=== PATIENT | male | born 1955 | race Caucasian/White ===

== ENCOUNTER 2018-05-08 09:20 | Outpatient (CLI) | payer MEDICAID, SELFPAY ==
[2018-05-08 12:17] LABS: Glucose 113 mg/dL (70-100)
== END 2018-05-08 09:40 ==
PROVIDERS: PCP Family Medicine; Visit Provider Family Medicine
DX: E74.39 Other disorders of intestinal carbohydrate absorption (principal)
CPT/HCPCS: 36415; 82947

== ENCOUNTER 2018-06-03 15:24 | Emergency (ER) | payer OTHER, MEDICAID, SELFPAY ==
[2018-06-03 15:31] VITALS: BP 183/84; PULSE 78; RESP 16; TEMP 37.4; O2SAT 96
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
--- NOTE | 2018-06-03 17:12 | DI.VRAD_ITS ---
EXAM: CT Head Without Contrast EXAM DATE/TIME: 06/03/2018 4:05 PM CLINICAL HISTORY: 62 years old, male; Pain and signs and symptoms; Neck pain TECHNIQUE: Axial computed tomography images of the head/brain without contrast. All CT scans at this facility use at least one of these dose optimization techniques: automated exposure control; mA and/or kV adjustment per patient size (includes targeted exams where dose is matched to clinical indication); or iterative reconstruction. Coronal and sagittal reformatted images were created and reviewed. COMPARISON: No relevant prior studies available. FINDINGS: Brain: There is cavitary encephalomalacia involving the anterior inferior right frontal lobe. Minimal tissue loss is also seen within the inferior medial left frontal lobe. There is tissue loss also seen in the anterior and lateral left temporal lobe. Findings likely represent posttraumatic change. The ventricles and sulci are otherwise unremarkable. There is no acute hemorrhage, mass or shift. There is no evidence of an acute cortical or major vascular territory infarct. No abnormal extra-axial collections are identified. Ventricles: There is no significant ventricular enlargement/hydrocephalus. Bones/joints: There is no acute fracture. Sinuses: There is sinus mucoperiosteal disease involving the right maxillary antrum. There is no other significant sinus opacification or fluid level. Mastoid air cells: No significant mastoid opacification. Soft tissues: There is right prefrontal soft tissue swelling/edema. Subcutaneous soft tissues are otherwise unremarkable. Vasculature: Intracranial vascular calcification is noted. IMPRESSION: 1. Right prefrontal soft tissue swelling. No acute fracture. 2. Encephalomalacia involving the frontal lobes right greater than left and the left temporal lobe presumably posttraumatic. No acute intracranial findings identified. EXAM: CT Cervical Spine Without Contrast EXAM DATE/TIME: 06/03/2018 4:05 PM CLINICAL HISTORY: 62 years old, male; Pain and signs and symptoms; Neck pain TECHNIQUE: Axial computed tomography images of the cervical spine without intravenous contrast. All CT scans at this facility use at least one of these dose optimization techniques: automated exposure control; mA and/or kV adjustment per patient size (includes targeted exams where dose is matched to clinical indication); or iterative reconstruction. Coronal and sagittal reformatted images were created and reviewed. COMPARISON: No relevant prior studies available. FINDINGS: Vertebrae: There is straightening of the cervical lordosis which may be positional or due to spasm. There is no evidence of an acute fracture. There is no decrease of vertebral body height. There is no acute or destructive bony abnormality. Discs/Spinal canal/Neural foramina: There is multilevel disc space narrowing in the cervical spine most prominent C3-4 through C6-7. There are disc osteophyte complexes, spondylitic changes of the endplates, uncovertebral and facet arthropathy. There is mild narrowing of the canal at the level of the disc spaces without high-grade central spinal stenosis. Degenerative changes also lead to multilevel foraminal narrowing. Soft tissues: There is no evidence of a discrete soft tissue mass in the neck. Lungs: No significant abnormality is identified at the lung apices. Vasculature: Vascular calcification is seen at the carotid bifurcations. No IMPRESSION: No acute fracture. Cervical spondylosis. Disc disease. Dictated and Authenticated by: Ele Alcantara MD. Ordering:STEPHENIE Segura MD
[2018-06-03 17:31] VITALS: BP 164/84; PULSE 80; RESP 16; TEMP 37.4; O2SAT 96
== END 2018-06-03 17:34 | disposition home or self-care (01) ==
PROVIDERS: Emergency Provider Emergency Medicine; PCP Family Medicine
DX: S16.1XXA Strain of muscle, fascia and tendon at neck level, initial encounter (principal); F07.81 Postconcussional syndrome; V43.52XA Car driver injured in collision with other type car in traffic accident, initial encounter; I10 Essential (primary) hypertension
CPT/HCPCS: 99284; 70450; 72125; L0172

== ENCOUNTER 2018-11-02 09:44 | Outpatient (CLI) | payer MEDICAID, SELFPAY ==
--- NOTE | 2018-11-02 10:13 | DI.RAD_ITS ---
SYMPTOM/DIAGNOSIS: BILAT KNEE PAIN, PREOP ALIGNMENT LEG LENGTH EXAMINATION AND BILATERAL KNEE XRAYS: Right knee: There is periarticular spurring involving all three joint compartments. The bones are intact and normally mineralized. There is a small suprapatellar joint effusion. Vascular calcifications are seen in the soft tissues. IMPRESSION: Mild to moderate osteoarthritis of the right knee. Left knee: There is marked narrowing of the medial femoral tibial joint space and mild medial subluxation of the distal femur relative to the proximal tibia. There is subchondral sclerosis in the medial femoral tibial joint space. Periarticular spurring is seen involving all three joint compartments. The bones appear intact and normally mineralized. Vascular calcifications are seen. There is a small suprapatellar joint effusion. IMPRESSION: Moderately severe osteoarthritis of the left knee. Leg length: The right lower extremity measures 86.3 cm. The left lower extremity measures 85.4 cm. There is osteoarthritis in the knees bilaterally. Vascular calcifications are present in the soft tissues.
== END 2018-11-02 10:04 ==
PROVIDERS: PCP Family Medicine; Visit Provider Student in an Organized Health Care Education/Training Program
DX: M25.561 Pain in right knee (principal); M25.562 Pain in left knee; M17.0 Bilateral primary osteoarthritis of knee; M79.89 Other specified soft tissue disorders
CPT/HCPCS: 73562; 77073

== ENCOUNTER 2019-02-09 09:00 | Outpatient (CLI) | payer MEDICAID, SELFPAY ==
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
[2019-02-09 11:01] LABS: HCT 48.6 % (40.0-50.0); HGB 16.4 g/dL (13.5-17.5); Mean Corp. HGB Concentration 33.7 g/dL (32.0-36.0); Mean Corpuscular Volume 88.8 fL (80-95); Mean Platelet Volume 9.3 fL (8.0-11.0); Platelet Count 300 x1000/uL (130-400); RBC 5.47 m/cumm (4.50-6.00); RBC Distribution Width 13.7 % (11.8-14.1); White Blood Cell Count 5.45 k/cumm (4.4-10.8)
[2019-02-09 11:03] LABS: Anion Gap 7.8 mmol/L (3-11); BUN 20 mg/dL (7-18); CO2 29.2 mmol/L (21.0-32.0); CREATININE 0.92 mg/dL (0.70-1.30); Calcium 10.2 mg/dL (8.5-10.1); Chloride 103 mmol/L (98-107); Glucose 125 mg/dL (70-100); Potassium 4.8 mmol/L (3.5-5.1); Sodium 140 mmol/L (136-145)
== END 2019-02-09 09:20 ==
PROVIDERS: PCP Family Medicine; Visit Provider Student in an Organized Health Care Education/Training Program
DX: M25.562 Pain in left knee (principal); M17.12 Unilateral primary osteoarthritis, left knee; I10 Essential (primary) hypertension; Z01.818 Encounter for other preprocedural examination; Z01.812 Encounter for preprocedural laboratory examination
CPT/HCPCS: 36415; 80048; 85027; NC

== ENCOUNTER 2019-02-16 06:33 | Observation (INO) | payer MEDICAID, SELFPAY ==
[2019-02-16] VITALS (13 sets, daily range): BP systolic 101–139; BP diastolic 42–83; PULSE 53–88; RESP 13–20; TEMP 35.5–37.2; O2SAT 93–100
[2019-02-16] MEDS: Lactated Ringers 1,000 ML 80 ML IV ×2 (07:25→11:13)
[2019-02-16] MEDS: Gabapentin 300 MG CAP PO (07:26)
[2019-02-16] MEDS: Celecoxib 200 MG CAP 400 MG PO (07:26)
[2019-02-16] MEDS: Acetaminophen 500 MG TAB 1000 MG PO ×2 (07:27→14:40)
[2019-02-16] MEDS: Bupivacaine 0.25% Pres-Free 10 ML VIAL (07:47)
[2019-02-16] MEDS: ceFAZolin 2 GM/50 ML BAG IVPB (08:10)
[2019-02-16] MEDS: Ketorolac 30 MG/ML VIAL (09:05)
[2019-02-16] MEDS: Normal Saline 50 ML (09:05)
[2019-02-16] MEDS: Bupivacaine 0.25% Pres-Free 30 ML VIAL (09:05)
--- NOTE | 2019-02-16 13:35 | W.PM.OP ---
Date of service: 02/16/19 Time of Service: 10:15 Operative Note Operative Note DATE OF PROCEDURE: 02/16/19 PRE-OP DIAGNOSIS: Left Knee Post-Traumatic Osteoarthritis POST-OP DIAGNOSIS: same PROCEDURE: Left Total Knee Replacement SURGEON: Franky James MANAGER CONFIGURATION: Maria Victoria Cedillo ANESTHESIA: regional and spinal ESTIMATED BLOOD LOSS: 150 PATHOLOGY: none sent TOURNIQUET TIME: 29 COMPLICATIONS: None Patient was transported to: PACU Patient's condition: stable Implants: 1. Depuy Attune Posterior Stabilized Femoral Component, Size 5 2. Depuy Attune Fixed Platform Tibial Component, Size 5 3. Depuy Attune 5x8mm Fixed, Stabilized Poly 4. Depuy Attune Patellar Component, Size 38mm Indications: I have seen Dandre in clinic for symptoms of left knee arthritis, confirmed with radiographic findings. Dandre has exhausted nonoperative methods and was having significant limitations in daily function and desired better function and less pain. I discussed the technical details of a knee replacement. I explained the risks of the procedure to include, but not limited to, bleeding, infection, pain, stiffness, fracture, damage to nerves and vessels, damage to muscles and tendons, loosening, need for repeat procedure, blood clot and cardiopulmonary demise. Despite these risks, Dandre elected to proceed. Findings: There was significant signs of arthritis throughout the knee. Procedure Description: Dandre was greeted in the preoperative holding area where the correct side was identified and marked. The consent was reviewed with the patient and signed. The history and physical was updated. All questions were answered. Preoperative mediacations were administered: Acetaminophen 1000mg, Celebrex 400mg, and Gabapentin 300mg. An adductor canal block was then administered by the anesthesia team in the PACU. Dandre was taken back to the operating room. A spinal anesthestic was then administered. The patient was placed into the supine position on the operating room table. A nonsterile tourniquet was placed high onto the leg but only used for cementing. Posts were placed for positioning during the procedure. All bony prominences were well padded. Prophylactic antibiotics in the form of Cefazolin were administered. 1g of Tranxemic Acid was given intravenously within 30 minutes of incision. The left leg was then prepped with Chloraprep and draped in a standard fashion with impervious stockinette and extremity drape. A second prep with Chloraprep was performed prior to placing Ioband. A timeout to confirm correct identity, side and site, procedure, allergies, anesthesia, and medical concerns was performed. With the knee in some flexion, a midline incision was made overlying the knee. Full thickness skin flaps were raised once the extensor mechanism was encountered. These were raised medially and laterally. Any bleeding was controlled with electrocautery. Once the extensor mechanism was fully exposed, a medial parapatellar arthrotomy was performed in a flexed position. All bleeding from the arthrotomy and the geniculate arteries was coagulated. A medial subperiosteal peel was performed with electrocautery to the midcoronal plane. Due to the significant varus deformity the entire medial tibial plateau was exposed. The fat pad was removed while keeping the patellar tendon protected. The anterior distal femur synovium was removed for later visualization. The ACL and PCL were resected and the anterior horn of the lateral meniscus was transected. The knee was then flexed with the patella everted. Large osteophytes from the tibia were removed. Large osteophytes from the femur were removed. Using a step drill, and based on preoperative templating, the femoral canal was entered. This was done with a step drill without any difficulty. The intramedullary distal femoral cut guide was inserted, set to a 5 degree valgus cut and 9mm cut thickness. The distal femoral cut guide was then held in position and pinned. With the soft tissues protected, the distal cut was performed. This was passed over a few times to ensure a planar cut. I then turned attention to the tibia. The extramedullary guide was placed onto the leg. The distal aspect was slid medial to adjust for position of center of ankle and stay in line with shaft of the tibia. Approximately 3-5 degrees of posterior slope was kept in the proximal cutting guide. The center of the guide was aligned with the PCL. The stylus was used to assess cut thickness. The medial side, most involved side, was set for a 2mm cut. This was then held in position and pinned into place with 2 additional pins and a cross pin for stability. The medial and lateral collateral ligaments were protected and the cut was performed. With this completed, it was assessed and noted to be of appropriate dimensions. The guide was removed. A spacer block was inserted and the knee was brought into extension. The 7mm spacer block provided full extension, without hyperextension and with stability of both the medial and lateral collateral ligaments was assessed. The pins from the femur and the tibia were then removed. The distal femur was then sized. The anterior stylus was placed onto the lateral ridge of the anterior femur. This indicated a size 5 femur. The external rotation of the guide was adjusted to 5 degrees to match the epicondylar axis, perpendicular to Cliff?s line. The 4-in-1 cutting guide was the placed. The posterior medial femur cut was evaluated and appeared of good thickness. The spacer block was inserted underneath the cutting guide and stability was confirmed in 90 degrees of flexion. An alexandra wing was used to confirm appropriate position of the anterior cut to avoid notching. This cutting guide was ensured to be flush on the cut surface and then pinned into place with headed pins. While protecting the soft tissues, quad tendon, and collateral ligaments, the anterior and posterior cuts were performed with a saw. The central two pins were removed and the posterior and anterior chamfers were cut next. The notch-cutting guide was placed. This was pinned to lateralize the femoral component as much as possible while keeping it flush on the cut surface. This was then pinned into position. A reciprocating saw was used to make the notch cut. A rasp smoothed the cut surfaces. A trial posterior stabilized femoral component was then inserted, impacted down to the cut surfaces, and the lug holes were drilled. A provisional trial tibial component was placed and the knee was brought through range of motion. The polyethylene was trialed until there was good flexion and extension with excellent stability to the medial and lateral collaterals. The patella was tracking without thumbs. The tibial cut surface was fully exposed. The medial and lateral menisci were removed. The tibia was then sized as a 5. The tibia had been previously marked during trialing to correspond to the center of the tibial component to help with rotation. The trial was aligned to this maria victoria, approximately rotated to the medial 1/3rd of the tibial tubercle. The trial was pinned into place. The tibia was prepared with a reamer and a keel punch. The knee was then brought into extension and the patella was measured as 26mm. Using the patellar clamp and cut guide, this was resected to a flat surface with at least 13mm of thickness remaining. The size 38 patella fit the best. This was oriented and then clamped into position. The lugs were drilled. The trial components were removed. The final components, except for the polyethylene were opened on the back table. The periosteal and capsular tissues, especially posteriorly, around the knee were then systematically injected with a periarticular cocktail consisting of 50cc 0.25% Marcaine, 30mg Ketorolac, 20cc of Exparal and 50cc of injectable saline. The tourniquet was then inflated to 275mmHg. The knee was thoroughly irrigated with a pulse lavage and dried. On the back table, with the implants opened, the cement was mixed. 2 batches of antibiotic laden cement were prepared with vacuum assistance. After the cement was ready it was placed on to the back side of the tibial component. A small amount was placed onto the posterior flange of the femur. Cement was manual pressurized and impregnated into the cut surface of the tibia. The tibial component was then inserted into the cut surface and impacted into position. Excess cement was removed and the component was reimpacted. Again, excess cement was removed and our attention was then turned to the femur. The femoral cut surface was once again dried and cement was manually impacted into the cut surface. The femoral component was lined with the lug holes and impacted. Excess cement was removed. It was ensured to be down against the cut surface. The trial polyethylene was then inserted and the leg was brought out into full extension for the duration of the cement curing process, approximately 15min. Cement was lastly manually impacted into the cut surface of the patella and the patellar button was clamped into position and held. During this process attention was turned to the gutters of the knee and for all interfaces for any excess cement. After the cement had finally cured, approximately 15min, the clamp was removed from the patella and the knee was taken through range of motion. A size 8mm polyethylene component provided the best range of motion and stability with less than 2mm gapping with medial and lateral stress and full extension without significant hyperextension. The patella was tracking with a no-thumbs technique. The trial poly was removed and once again the knee was checked for any loose, excess, or errant cement. The poly component was then inserted and impacted into position after cleaning and drying the tibial tray. The capsule was then reapproximated with a No. 1 Vicryl at multiple locations. The capsule was finally closed with a No. 2 Stratafix, barbed suture. The tourniquet was then released and the arthrotomy appeared watertight without significant bleeding. The second dosing of 1g TXA was started. Deep tissues were then reapproximated with 0 Vicryl and 2-0 Vicryl. The skin was closed with a running 3-0 Monocryl in a subcuticular fashion. This was reinforced with skin glue. A Mepilex silver dressing was applied along with a [id number]-xzgrh LUDA wrap. A CryoCuff was applied. Dandre was transferred to the hospital bed without difficulty an suffering no apparent complication. Dandre has a good prognosis. Physical therapy will start today and without restrictions, weight-bearing as tolerated. Aspirin 81mg BID will be used for DVT prophylaxis.
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
--- NOTE | 2019-02-16 14:37 | CHAPLAIN ---
Nakul had knee replacement surgery this morning and said right now he is feeling no pain. He is sharing a room with Nicole Bermudez who is here with a PE. They were six weeks ago. Nakul said he may go home later today.
== END 2019-02-16 18:25 | disposition home or self-care (01) ==
LOC: MS 11:05 → PDS 11:08
PROVIDERS: Admitting Provider Student in an Organized Health Care Education/Training Program; PCP Family Medicine; Visit Provider Student in an Organized Health Care Education/Training Program
PROC: 0SRD0J9 Replacement of Left Knee Joint with Synthetic Substitute, Cemented, Open Approach (ICD-10-PCS; CPT 27447; principal; 2019-02-16 08:30)
DX: Z96.652 Presence of left artificial knee joint; M17.32 Unilateral post-traumatic osteoarthritis, left knee; W17.2XXS Fall into hole, sequela; I10 Essential (primary) hypertension; E78.00 Pure hypercholesterolemia, unspecified; G89.18 Other acute postprocedural pain
CPT/HCPCS: 27447; C1776; 76942; 97162; 97530; NC; G0378; J0690; J1100; J1885; J2250; J2370; J2405

== ENCOUNTER 2019-03-22 10:33 | Outpatient (CLI) | payer MEDICAID, SELFPAY ==
--- NOTE | 2019-03-22 10:11 | DI.RAD_ITS ---
EXAM: XR KNEE LT 1V and standing alignment INDICATION: L TKA. COMPARISON: XR knee LT 3V AP,lat,liana from 11/02/2018 TECHNIQUE: 2D digital imaging was performed. FINDINGS: The patient is now status post left total knee replacement. The orthopedic hardware appears in good position. There is mild soft tissue swelling about the knee. There is a small joint effusion. Ather osclerosis is present. In the right knee, there is mild periarticular spurring and joint space narrowing noted. The right lower extremity measures 83.7 centimeters. The left lower extremity measures 83.3 centimet ers. IMPRESSION: Status post left TKR.
== END 2019-03-22 10:53 ==
PROVIDERS: PCP Family Medicine; Visit Provider Physician Assistant
DX: Z96.652 Presence of left artificial knee joint (principal); M25.462 Effusion, left knee; M79.89 Other specified soft tissue disorders; Z47.1 Aftercare following joint replacement surgery; M17.11 Unilateral primary osteoarthritis, right knee
CPT/HCPCS: 73560; 77073

== ENCOUNTER 2019-04-09 09:52 | Outpatient (CLI) | payer MEDICAID, SELFPAY ==
[2019-04-09 13:07] LABS: Calculated LDL 112 mg/dL; Cholesterol 186 mg/dL (<200); HDL Cholesterol 51 mg/dL (40-60); Triglyceride 115 mg/dL (<150)
[2019-04-09 16:08] LABS: Hemoglobin A1C 5.7 % (4.5-6.2)
== END 2019-04-09 10:12 ==
PROVIDERS: PCP Family Medicine; Visit Provider Family Medicine
DX: R73.9 Hyperglycemia, unspecified (principal); Z13.220 Encounter for screening for lipoid disorders; Z00.00 Encounter for general adult medical examination without abnormal findings
CPT/HCPCS: 36415; 80061; 83036

== ENCOUNTER 2019-05-07 10:16 | Day surgery (SDC) | payer MEDICAID, SELFPAY ==
[2019-05-07 10:57] VITALS: BP 138/77; PULSE 79; RESP 17; TEMP 36.5; O2SAT 97
[2019-05-07] MEDS: Lactated Ringers 1,000 ML 80 ML IV (11:15)
[2019-05-07] MEDS: Bupivacaine 0.5% Pres-Free 30 ML VIAL (13:01)
--- NOTE | 2019-05-07 13:07 | PDOC.DSDIS_ITS ---
Discharge Plan Disposition Patient Disposition: HOME Condition: Good Discharge Details Reason For Visit: (L) KNEE ARTHROFIBROSIS Attending Provider: Franky James Primary Care Provider: Mj Macias Home Meds and New Rx's Prescriptions: New oxycodone 5 mg tablet 5 mg PO Q4H Qty: 12 RF: 0 Continued Aleve PM 220-25 mg tablet 1 tab PO HS PRN RF: 0 amlodipine 10 mg tablet 10 mg PO DAILY Qty: 90 RF: 3 triamcinolone acetonide 0.1 % cream 1 applic TP BID Qty: 30 RF: 2 atorvastatin [Lipitor] 40 mg tablet 40 mg PO QPM Qty: 90 RF: 3 gabapentin 300 mg capsule 300 mg PO QHS Qty: 30 RF: 1 sildenafil (pulm.hypertension) 20 mg tablet 20 - 100 mg PO DAILY PRN (Reason: sexual activity) Qty: 30 RF: 5 acetaminophen 500 mg tablet 1,000 mg PO Q8H PRN (Reason: pain) Qty: 90 RF: 3 aspirin 81 mg tablet,chewable 81 mg PO BID Qty: 60 RF: 3 ibuprofen 600 mg tablet 600 mg PO TID PRN (Reason: pain) Qty: 90 RF: 0 Discharge Instructions Additional Instructions: Activity: You should begin moving as soon as possible. You may work on flexion but also equally maintain extension. You may bear weight as tolerated, using crutches only for support/comfort. You should apply ice to help with swelling and elevate when possible (especially in the first few days). You should apply ice to assist with swelling and pain. Medications: - Rarely does this require any stronger pain medications, but it may for the first few days or with PT. Oxycodone has been called in. - Recommend to take up to 1000mg of Acetaminophen (Tylenol) every 8 hours and 600mg of Ibuprofen (Advil) every 8 hours as needed. Follow-up: 10-14 days Referrals: Franky James MD [ [facility] STAFF PHYSICIAN] - Activity:: Elevate Remove Dressings/Wound Care:: 24 hours Shower/Bathe:: 24 hours Diet:: As Tolerated Discharge Orders Discharge Orders: Discharge Order (Routine); Ordered 05/07/19 Ordered By: Franky James DS: Diagnosis Discharge Diagnosis (1) Arthrofibrosis of total knee arthroplasty: Status: Acute
[2019-05-07 13:56] VITALS: BP 157/100; PULSE 73; RESP 20; TEMP 36.4; O2SAT 97
--- NOTE | 2019-05-07 17:51 | W.PM.OP ---
Date of service: 05/07/19 Time of Service: 13:51 Operative Note Operative Note DATE OF PROCEDURE: 05/04/19 PRE-OP DIAGNOSIS: Left knee Arthrofibrosis s/p Replacement POST-OP DIAGNOSIS: same PROCEDURE: Left knee Manipulation Under Anesthesia SURGEON: Franky James ANESTHESIA: NANCY ESTIMATED BLOOD LOSS: 0 PATHOLOGY: none sent TOURNIQUET TIME: 0 COMPLICATIONS: None Patient was transported to: PACU Patient's condition: stable Indications: Dandre is a 63-year-old male who is s/p knee replacement. Despite diligent work with physical therapy there has been continued stiffness. To assist with mobility, I offered a manipulation under anesthesia. I discussed the risks of the procedure to include bleeding, pain, recurrent stiffness, fracture. Despite these risks, he elects to proceed. Findings: Preoperative flexion = 95 Postoperative flexion = 120 Preoperative extension = 5 Postoperative extension = 5 Procedure Description: The patient is agreed in the preoperative holding area. Identity was confirmed and the correct side was identified and marked. The consent was reviewed the patient and signed. History and physical was updated. Dandre was taken back to the operating room. The left side was identified as the correct side. A timeout was performed for safe surgery. A general anesthetic was administered. The knee was then prepped with ChloraPrep and an intra-articular injection of 10 cc of 0.5% bupivacaine was administered. Once a muscle relaxant was fully on board manipulation was performed. Pre-manipulation range of motion was noted. A gentle manipulation was performed first into flexion using a very small lever arm and adding gentle and progressive pressure to the tibia. There is audible and palpable crepitus with improvement in range of motion. This was cycled and repeated multiple times. The leg was then brought into extension and gentle anterior posterior pressure was applied with a supported hand behind the proximal tibia and knee. This was brought back into flexion was once again manipulated with gentle and progressive pressure. Final range of motion numbers were recorded. While there was some crepitus and obvious improvement with flexion, it was not as drastic as I was hoping. Even with progressive amounts of force I was unable to increase the flexion past about 125 degrees or so. A Band-Aid was applied to the injection site. He was awake from anesthesia and taken to the PACU in stable condition.
== END 2019-05-07 14:40 | disposition home or self-care (01) ==
PROVIDERS: PCP Family Medicine; Visit Provider Student in an Organized Health Care Education/Training Program
PROC: (CPT 27570; principal; 2019-05-07 13:00)
DX: T84.82XA Fibrosis due to internal orthopedic prosthetic devices, implants and grafts, initial encounter (principal); M25.662 Stiffness of left knee, not elsewhere classified; Z96.652 Presence of left artificial knee joint
CPT/HCPCS: 27570

== ENCOUNTER 2020-05-22 04:02 | Outpatient (CLI) | payer MEDICAID, SELFPAY ==
[2020-05-23 12:35] LABS: COVID-19 RT-PCR UVMMC Result Negative (Negative)
== END 2020-05-22 04:22 ==
PROVIDERS: PCP Family Medicine; Visit Provider Family Medicine
DX: Z01.818 Encounter for other preprocedural examination (principal); Z11.52 Encounter for screening for COVID-19
CPT/HCPCS: U0003

== ENCOUNTER 2020-05-23 09:48 | Emergency (ER) | payer MEDICAID, SELFPAY ==
[2020-05-23] VITALS (50 sets, daily range): BP systolic 91–128; BP diastolic 44–81; PULSE 55–77; RESP 15–33; TEMP 36.6; O2SAT 91–98
--- NOTE | 2020-05-23 09:45 | RT.EKG_ITS ---
APPROVED REPORT Exam: Resting ECG Patient Location: E HR:68 bpm ECG Measurements Heart Rate 68 AXIS DC 135 P 69 QRSd 95 QRS -21 QT 430 T 81 QTc 456 Conclusion Sinus rhythm...normal P axis, V-rate 60- 99 Atrial premature complex...SV complex w/ short R-R interval st depressions in lateral leads new from 05/18
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
[2020-05-23] MEDS: Normal Saline Flush 10 ML SYR IVP (10:00)
--- NOTE | 2020-05-23 10:15 | DI.RAD_ITS ---
EXAM: XR PORTABLE CHEST AP CLINICAL HISTORY: pain/sob TECHNIQUE: 2D digital imaging was performed. COMPARISON: No exams were available for comparison FINDINGS: MEDIASTINUM: Normal. HEART: Normal. PULMONARY VASCULATURE: Normal. LUNGS: Clear. PLEURAL SPACE: No pleural effusion or pneumothorax. BONE:Within normal limits for the patient's age. OTHER FINDINGS:Normal. IMPRESSION: No acute pulmonary findings. DATA REPOSITORY: RADIATION DOSE DELIVERED:
[2020-05-23 10:29] LABS: Abs Immature Grans 0.03 10^3/uL (0.0-0.06); Absolute Basophil Count 0.05 10^3/uL (0.0-0.2); Absolute Eosinophil Count 0.21 10^3/uL (0.0-0.7); Absolute Lymphocyte Count 1.26 10^3/uL (1.2-3.4); Absolute Monocyte Count 0.65 10^3/uL (0.1-0.8); Absolute Neutrophil Count 4.37 10^3/uL (1.2-6.7); Basophils % 0.8; Eosinophils % 3.2; HCT 50.5 % (40.0-50.0); Immature Grans % 0.5; Lymphocytes % 19.2; MCH 30.4 pg (27.0-33.0); MCHC 33.7 % (32.0-36.0); MCV 90.3 fL (80-95); MPV 9.8 fL (8.0-11.0); Monocytes % 9.9; Neutrophils % 66.4; Nucleated RBC 0 %; Platelet Count 267 10^3/uL (130-400); RBC 5.59 10^6/uL (4.36-5.78); RDW 13.1 % (11.8-14.1); RDW-SD 43.3 fL; WBC 6.57 10^3/uL (4.4-10.8)
[2020-05-23] MEDS: Normal Saline 1,000 ML 125 ML IV (10:34)
[2020-05-23] MEDS: Aspirin 81 MG CHEW 324 MG CH (10:34)
[2020-05-23] MEDS: nitroGLYcerin 0.4 MG TAB SL (10:38)
[2020-05-23 10:44] LABS: PTT Activated 25.1 sec (21.0-27.5); Prothrombin Time 9.7 sec (9.3-11.0)
[2020-05-23 10:48] LABS: ALT 38 U/L (16-63); AST 50 U/L (15-37); Alkaline Phosphatase 74 U/L (46-116); Anion Gap 8.2 mmol/L (3-11); BUN 17 mg/dL (7-18); Bilirubin, Total 0.5 mg/dL (0.2-1.0); CO2 28.8 mmol/L (21.0-32.0); CREATININE 1.2 mg/dL (0.70-1.30); Calcium 9.4 mg/dL (8.5-10.1); Chloride 104 mmol/L (98-107); Glucose 131 mg/dL (74-106); Lipase 115 U/L (73-393); Magnesium 2.1 mg/dL (1.8-2.4); NT-proBNP 4689 pg/mL (<300); Potassium 4.1 mmol/L (3.5-5.1); Sodium 141 mmol/L (136-145)
[2020-05-23 10:49] LABS: Troponin I 5.99 ng/mL (<0.06)
[2020-05-23 11:02] LABS: D-Dimer 626 ng/mlFEU (<500)
[2020-05-23] MEDS: Clopidogrel 300 MG TAB PO (11:35)
[2020-05-23] MEDS: Metoprolol 12.5 MG TAB PO (13:54)
[2020-05-23 14:06] LABS: Troponin I 6.55 ng/mL (<0.06)
== END 2020-05-23 14:26 | disposition short-term general hospital (02) ==
PROVIDERS: Emergency Provider Physician Assistant; PCP Family Medicine
DX: I21.4 Non-ST elevation (NSTEMI) myocardial infarction (principal); Z82.49 Family history of ischemic heart disease and other diseases of the circulatory system
CPT/HCPCS: 36415; 80053; 83690; 93005; 96361; 96365; 96366; 96376; 99291; 71045; 83735; 83880; 84484; 85025; 85379; 85610; 85730; 93010; J3490

== ENCOUNTER 2020-07-18 03:29 | Outpatient (CLI) | payer MEDICAID, SELFPAY ==
[2020-07-18 12:56] LABS: Calculated LDL 114 mg/dL (<100); Cholesterol 183 mg/dL (<200); HDL Cholesterol 49 mg/dL (40-60); Triglyceride 102 mg/dL (<150)
== END 2020-07-18 03:30 | disposition home or self-care (01) ==
LOC: LOS 03:29
PROVIDERS: PCP Family Medicine; Visit Provider Family Medicine
DX: E78.5 Hyperlipidemia, unspecified (principal)
CPT/HCPCS: 36415; 80061

== ENCOUNTER 2020-10-13 02:26 | Outpatient (CLI) | payer MEDICAID, SELFPAY ==
[2020-10-13 12:52] LABS: Calculated LDL 76 mg/dL (<100); Cholesterol 152 mg/dL (<200); HDL Cholesterol 43 mg/dL (40-60); Triglyceride 168 mg/dL (<150)
== END 2020-10-13 02:27 | disposition home or self-care (01) ==
LOC: LOS 02:27
PROVIDERS: PCP Family Medicine; Visit Provider Internal Medicine Cardiovascular Disease
DX: I25.2 Old myocardial infarction (principal); I25.10 Atherosclerotic heart disease of native coronary artery without angina pectoris; I48.91 Unspecified atrial fibrillation
CPT/HCPCS: 36415; 80061

== ENCOUNTER 2020-11-30 09:41 | Emergency (ER) | payer MEDICAID, SELFPAY ==
[2020-11-30 09:46] VITALS: BP 134/75; PULSE 58; RESP 16; TEMP 36.1; O2SAT 97
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
--- NOTE | 2020-11-30 10:00 | DI.RAD_ITS ---
Exam(s) XR SHOULDER RT COMPLETE 2+V EXAM: XR SHOULDER RT COMPLETE 2+V CLINICAL HISTORY: injury 2 weeks ago, chronic pain. TECHNIQUE: 2D digital imaging was performed. COMPARISON: CR CHEST 2 VIEWS PA,LAT from 04/09/2015 CR XR PORTABLE CHEST AP from 05/23/2020 CR XR PORTABLE CHEST AP from 05/23/2020 FINDINGS: BONES: No acute fracture is present. No bony destructive lesion is seen. JOINTS: No dislocation present. There has been no change in alignment of the acromioclavicular joint compared to the chest x-ray from 05/23/2020. There are moderate degenerative changes of the acromiocl avicular joint. The glenohumeral joint appears well maintained. SOFT TISSUE: Normal. IMPRESSION: 1. No acute fracture or dislocation. 2. Stable alignment of the acromioclavicular joint compared to prior examinations. DATA REPOSITORY: RADIATION DOSE DELIVERED:
[2020-11-30] MEDS: Lidocaine 1% Multi-Dose 20 ML VIAL IJ (11:11)
[2020-11-30] MEDS: Triamcinolone 40 MG/ML VIAL IM (11:12)
== END 2020-11-30 11:20 | disposition home or self-care (01) ==
PROVIDERS: Emergency Provider Physician Assistant; PCP Family Medicine
DX: M25.511 Pain in right shoulder (principal)
CPT/HCPCS: 96372; 99284; 73030; 99283; J3490